=== PATIENT | male | born 1960 | race Caucasian/White ===

== ENCOUNTER 2023-07-23 06:16 | Day surgery (SDC) | payer BC, SELFPAY ==
[2023-07-23] VITALS (9 sets, daily range): BP systolic 123–150; BP diastolic 71–103; BMI 22.7
[2023-07-23] MEDS: NSS 209 ML IV (07:08)
[2023-07-23 08:00] LABS: ACT-LR - POC 263 Seconds (116-155)
--- NOTE | 2023-07-23 08:35 | ITS.CL.ANGIO ---
[employer] - Angioplasty
Angioplasty
Procedure Report:
CARDIAC CATHETERIZATION REPORT
Date of Procedure: 07/23/2023
Referring: Richard Garcia M.D.
INDICATION: Persistent angina, abnormal stress test, known coronary artery disease.
PROCEDURE:
1. Left heart catheterization.
2. Coronary angiography.
3. Successful PCI to the proximal circumflex.
ACCESS:
6 [place] right artery.
CATHETERS:
1. 5 [place] JR4.
2. 5 [place] JL 3.5.
3. 6 [place] EBU 3.5 guide.
HEMODYNAMIC DATA
Weight (kg): 70.8
AO (s/d/x, mmHg): 133/86/110
LV (s/x mmHg): 136/11 (A wave to 20)
LEFT VENTRICULOGRAPHY: Not performed.
CORONARY ANGIOGRAPHY
Dominance: Right.
Left Main: Normal size, bifurcating vessel. There is no coronary artery disease.
LAD: Normal size vessel giving rise to 2 diagonals. There are minor luminal irregularities in the proximal vessel. 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
Ramus: Congenitally absent.
Circumflex: Normal size, nondominant vessel giving rise to 1 large obtuse marginal. A patent stent is present extending from the proximal circumflex into the obtuse marginal with no evidence of in-stent restenosis. There is an 80% lesion in the
proximal circumflex, immediately proximal to the proximal margin of the stent.
RCA: Large size, dominant vessel. There is no coronary artery disease.
INTERVENTION(S)
1. Successful PCI of the 80% proximal circumflex lesion (Xience Skypoint 3.0 x 12 JOE, postdilated with a 3.0 NC balloon throughout and a 3.5 x 6 NC balloon in the proximal margin) with reduction in stenosis to 0%, maintaining ROSA-3 flow.
Narrative:
The decision was made to proceed with percutaneous coronary intervention. The diagnostic catheter was removed over a wire and a 6Fr EBU 3.5 guiding catheter was advanced to the aortic root and seated in the left main coronary artery. Additional
heparin was given and a Power Turn Flex wire was advanced into the distal obtuse marginal. The 80% proximal circumflex lesion was predilated with a 2.0 x 12 semi-compliant balloon to 12 doris. After satisfactory angioplasty result, we elected to load
with antiplatelet agent. Given the patient's prior intolerances, we elected to load with prasugrel 60 mg. Unfortunately, this was not readily available from the [facility] and had to be sent up from pharmacy. In the interim, the patient was given an
double bolus of eptifibatide. The semi-compliant balloon was removed and a Xience Skypoint 3.0 x 12 drug-eluting stent was advanced. Meticulous care was taken while positioning the stent with the distal edge overlapping the proximal margin of the
previous stent and the proximal edge not intruding into the left main coronary artery. We were particularly careful to avoid the circumflex/OM bifurcation. The stent was deployed at 12 atmospheres. The stent balloon was removed. A 3.0 x 8
noncompliant balloon was advanced into the stent and the stent was postdilated to 16 atmospheres. The noncompliant balloon was removed and a 3.5 x 6 noncompliant balloon was advanced. The proximal stent margin was postdilated to 15 doris. The
noncompliant balloon was removed. Angiography was performed in orthogonal views, confirming good stent expansion and an excellent angiographic result. The coronary wire was withdrawn and the guide was disengaged from the artery. The catheter was
removed over a standard J-wire. By this time, the prasugrel had arrived from pharmacy. The patient was asked to 60 mg. He was transferred to the holding area for monitoring.
Closure Device: Vascular band.
Radiation (mGy): 354.02
DAP (cm2.Gy): 21.1960
Fluoroscopy time (minutes): 4.4
Sedation time (minutes): 45
CONCLUSIONS
1. Right dominant circulation with luminal irregularities in the proximal LAD, and mid LAD myocardial bridge, a patent stent in the left circumflex extending into the obtuse marginal and an 80% proximal circumflex lesion, status post successful PCI
(Xience Skypoint 3.0 x 12 JOE, postdilated with a 3.0 NC balloon throughout and a 3.5 x 6 NC balloon in the proximal margin) with reduction in stenosis to 0%, maintaining ROSA-3 flow.
2. Normal filling pressures (LVEDP = 11 mmHg at 70.8 kg) with evidence of diastolic dysfunction (A wave to 20 mmHg).
3. Rash associated with clopidogrel. Low-level dyspnea associated with ticagrelor.
RECOMMENDATIONS:
1. Expectant management after cardiac catheterization via right radial approach.
2. Limited weight bearing on the right wrist for one week.
3. Dual antiplatelet therapy with aspirin and prasugrel. We will monitor for any reaction to the prasugrel given as it is in the same class of drug as clopidogrel.
4. If the patient is unable to tolerate any P2Y12 inhibitor, we will transition to ticagrelor and the patient will simply have to bear with the sensation of dyspnea.
5. Continue aggressive secondary preventive measures.
Copy to: iRchard Garcia M.D., Carson Schreiber D.O.
Matt Alonso DO, FACC, FACP
[2023-07-23] MEDS: EFFIENT 60 MG PO (09:07)
[2023-07-23] MEDS: NSS 1000 IV (09:08)
--- NOTE | 2023-07-23 10:00 | PTCARENOTE ---
Pt seen by Cardiac Rehab nurse at bedside to discuss rehab ortions. Appointment has been scheduled with patient for rehab as an outpatient.
[2023-07-23 11:47] LABS: ACT-LR - POC > 397 Seconds (116-155)
--- NOTE | 2023-07-23 14:36 | W.PN.UPDATE ---
Update Note
Progress Note Update
Pt seen post LCx PCI. Right radial cath site without ht/bleeding, non tender. OOB to chair. Post EKG NSR 70s, no acute changes. Prior history of dyspnea r/t brilinta and rash r/t plavix, and therefor will be on effient 10mg/daily. Pt understands
importance of uninterrupted DAPT w/asa, effient. Continue other meds as before. Cardiac rehab consulted. Followup at [facility] as scheduled. Home today if cath site/tele remain stable.
== END 2023-07-23 14:58 | disposition home or self-care (01) ==
LOC: CATH 06:16
PROVIDERS: ATTENDING PHYSICIAN Internal Medicine Cardiovascular Disease; FAMILY PHYSICIAN Family Medicine; OTHER PHYSICIAN Internal Medicine Cardiovascular Disease
DX: I25.119 Atherosclerotic heart disease of native coronary artery with unspecified angina pectoris (principal); Q24.5 Malformation of coronary vessels; Z95.5 Presence of coronary angioplasty implant and graft; Z79.02 Long term (current) use of antithrombotics/antiplatelets; Z79.82 Long term (current) use of aspirin
CPT/HCPCS: 85347; 93005; 93458; C1725; C1874; C1894; C9600; J1327; Q9967

== ENCOUNTER 2023-08-12 13:36 | Outpatient (RCR) | payer BC, SELFPAY | END 2023-08-12 23:59 | disposition home or self-care (01) | LOC: CRHB 13:36 | PROVIDERS: ATTENDING PHYSICIAN Internal Medicine Cardiovascular Disease | DX: I25.10 Atherosclerotic heart disease of native coronary artery without angina pectoris (principal); Z95.5 Presence of coronary angioplasty implant and graft; I25.2 Old myocardial infarction | CPT/HCPCS: 93798 ==

== ENCOUNTER → 2023-08-27 11:20 | Outpatient (REF) | payer BC, SELFPAY | LOC: DHCBC HW 11:20 | PROVIDERS: ATTENDING PHYSICIAN Specialist; FAMILY PHYSICIAN Family Medicine; REFERRING PHYSICIAN Nurse Practitioner | DX: R07.89 Other chest pain (principal); N20.0 Calculus of kidney | CPT/HCPCS: 74018; 93306 ==

== ENCOUNTER 2023-09-25 12:12 | Emergency (ER) | payer BC, SELFPAY ==
[2023-09-25 12:15] VITALS: BP 146/89
[2023-09-25 12:31] LABS: % Basophils 0.8 % (0-2); % Eosinophils 0.6 % (0-6); % Immature Granulocytes 0.2 % (0-0.5); % Monocytes 7.1 % (1.7-9.3); % Neutrophils 75.3 % (42.2-75.2); Absolute Basophils 0.1 10^3/uL (0-0.2); Absolute Monocytes 0.4 10^3/uL (0.1-0.6); Absolute Neutrophils 4.7 10^3/uL (1.4-6.5); Hematocrit 40.6 % (39.0-52.0); Hemoglobin 14.3 g/dL (13.0-18.0); Mean Corp Hgb Conc. 35.2 g/dL (33.0-37.0); Mean Corpuscular Hgb 31.8 pg (27.0-31.0); Mean Corpuscular Volume 90.4 fL (80.0-94.0); Mean Platelet Volume 11.1 fL (7.4-10.4); Nucleated Red Blood Cells % 0 % (-); Platelet Count 220 10^3/uL (130-400); Red Blood Cell Count 4.49 10^6/uL (4.70-6.10); Red Cell Dist. Width 11.7 % (11.5-14.5); White Blood Cell Count 6.2 10^3/uL (4.8-10.8)
[2023-09-25 12:45] LABS: ALT (SGPT) 52 U/L (0-50); AST (SGOT) 41 U/L (17-59); Albumin 4.8 g/dl (3.5-5.0); Alkaline Phosphatase 66 U/L (38-126); Blood Urea Nitrogen 9 mg/dl (9-20); Calcium 9.6 mg/dl (8.4-10.2); Carbon Dioxide 24 mmol/L (22-30); Chloride 106 mmol/L (98-107); Glucose 99 mg/dl (70-99); Lipase 97 U/L (23-300); Potassium 4.1 mmol/L (3.5-5.1); Sodium 137 mmol/L (135-145); Total Bilirubin 0.8 mg/dl (0.2-1.3); Total Protein 7.2 g/dl (6.3-8.2); eGFR > 60.00
[2023-09-25 13:25] VITALS: BP 144/70
[2023-09-25 13:50] LABS: Troponin I < 0.012 ng/ml
[2023-09-25 14:15] VITALS: BP 110/70
--- NOTE | 2023-09-25 14:43 | ED.GENMED ---
History of Present Illness
General
Chief Complaint: Abdominal Pain
Source: patient
Exam Limitations: none
Time Seen by Provider: 09/25/23 13:52
Nursing documentation reviewed up to this point in time: agreed with
Travel History
Have you had any contact with someone who has COVID-19?: No
Do you have any symptoms of coronavirus? Fever > 100 degrees, chills, cough, shortness of breath, sore throat, loss of taste or smell, muscle aches, or headache?: No
History of Present Illness
History of Present Illness:
Patient status post stent placement in June 2023, presents to ED secondary to intermittent upper abdominal pain radiating up to both shoulders, along with nausea sensation, as well as intermittent left-sided chest pain over the past 5 days.
Denies shortness of breath. Denies fever or chills. Denies diarrhea. Abdominal pain described as crampy, across his upper abdomen, with out any alleviating factors, but worse with meals. Denies difficulty with urination. Denies previous history
of similar symptoms. Denies recent change in medications or diet. Denies sick contact. Denies recent travel.
Past History
Past History
ED Past Medical History: GERD, HTN, Hypercholesterolemia, [place] and Other (Pericarditis)
ED Past Surgical History: None
Social History
Tobacco: Non-smoker
Alcohol: Occasional
Drug: None
Personal: Single
Living: other (Significant other)
Employment: Employed
Family History
Family History: Negative Early CAD or CAD
Review of Systems
Review of Systems
Allergies reviewed?: Yes
All Other Systems: ROS reviewed and negative except as documented in HPI and ROS
Constitutional: Reports no symptoms; Denies fever
EENT: Reports no symptoms
Respiratory: Reports no symptoms
Cardiac: Reports chest pain and palpitations
ABD/GI: Reports abdominal pain and nausea; Denies vomiting or diarrhea
: Reports no symptoms
Musculoskeletal: Reports no symptoms
Skin: Reports no symptoms
Neurological: Reports no symptoms
Phy Exam
Physical Exam
Physical Exam:
Physical Exam
General: no apparent distress, not acutely ill. afebrile
Head: nc/at. eomi
Neck: supple. no meningeal signs.
Heart: s1/s2 regular rate and rhythm, no murmur. equal radial pulses.
Lungs: no acute respiratory distress. clear bilaterally
Abdomen: normal bowel sounds. not tender.
Neuro: alert and oriented. no focal neurological deficits
Skin: no rash
Psychiatric: well kept. interactive and cooperative
Extremities: no edema. no calf tenderness.
Scores
Heart Score for Chest Pain Patients
STEMI patient?: No
History: Slightly or Non-Suspicious
ECG: Normal
Age: >45 - <65 years
Risk Factors: >/= 3 Risk Factors or History of CAD
Troponin: </= Normal Limit
Heart Score for Chest Pain Patients: 3
Heart Score Risk: 2.5% MACE over next 6 weeks
Course
Orders/Labs/Results
Orders:
Orders
09/25/23 12:17
Electrocardiogram (*1) Urgent
Reason for Study: Chest Pain
EKG- Treatment ONCE
09/25/23 12:24
Complete Blood Count/With Diff Urgent
Comprehensive Metabolic Panel Urgent
Lipase Urgent
09/25/23 13:19
Troponin I Urgent
09/25/23 14:32
US Abdomen Complete/Upper Urgent
Comment:
Reason For Exam: upper abdominal pain
Abnormal Lab Results
09/25/23
12:24
RBC 4.49 L 10^6/uL
(4.70-6.10)
MCH 31.8 H pg
(27.0-31.0)
MPV 11.1 H fL
(7.4-10.4)
Absolute Lymphs (auto) 1.0 L 10^3/uL
(1.2-3.4)
Neutrophils % 75.3 H %
(42.2-75.2)
Lymphocytes % 16.0 L %
(20.5-51.1)
ALT 52 H U/L
(0-50)
09/25/23 12:24
09/25/23 12:24
Vital Signs
Initial and Last Documented VS:
Initial Vital Signs
Temp Pulse Resp BP Pulse Ox
98.3 F 81 18 146/89 96
09/25/23 12:15 09/25/23 12:15 09/25/23 12:15 09/25/23 12:15 09/25/23 12:15
Last Documented Vital Signs
Temp Pulse Resp BP Pulse Ox
98.3 F 74 16 117/81 97
09/25/23 12:15 09/25/23 16:59 09/25/23 16:59 09/25/23 16:59 09/25/23 16:59
MDM/Problems Addressed
MDM/Problems Addressed:
Patient with an unremarkable workup in ED, including blood work, EKG, and abdominal ultrasound. Patient with a likely 2 separate processes, i.e. gastritis versus biliary colic versus ulcer, as well as potential cardiac symptoms. Patient remains
hemodynamically stable otherwise, without any acute distress. Advised diet modification short-term, along with GI or cardiology follow-up as an outpatient. Patient states that he already has an appointment with his paper inspector in 2 weeks.
Advised to return to ED with worsening symptoms.
*EKG
Interpreted by ED Provider?: Yes
EKG Intrepretation Date: 09/25/23
Heart Rate: 74
Rate: normal
Rhythm: sinus
[place]: normal axis
*Critical Care Note
Total Time (30-74mins, 75-104mins- exclusive of procedures): Not Applicable
ED Attending Note
-
Portions of this chart may have been created with voice recognition software.� Occasional wrong word or��sound alike� substitutions may have occurred due to the inherent limitations of voice recognition software.
Discharge Plan
Departure
Patient Disposition: Home (Routine Discharge)
Date of Disposition: 09/25/23
Time of Disposition: 16:38
Patient with high blood pressure during this ER visit?: Yes
Discharge Problem:
Abdominal pain, Chest pain
Instructions: Chest Pain (DC), Gastritis (DC), Ulcer and Gastritis Diet, Abdominal Pain
Prescriptions:
No Action
aspirin 81 mg Tablet,Chewable
81 mg PO DAILY Qty: 1 0RF
rosuvastatin [Crestor] 20 mg tablet
20 mg PO QPM Qty: 90 5RF
ezetimibe [Zetia] 10 mg Tablet
10 mg PO DAILY
omega-3 fatty acids Capsule
1,000 mg PO DAILY
prasugrel [Effient] 10 mg tablet
10 mg PO DAILY Qty: 90 3RF
nitroglycerin [nitroglycerin] 0.4 mg tablet, sublingual
0.4 mg sublingual [id number] PRN (Reason: chest pain) Qty: 25 2RF
Referrals:
Carson Schreiber, DO [Family Provider] -
Activity Restrictions/Additional Instructions:
As discussed, please follow-up with your primary care physician as well as paper inspector for further evaluation and treatment.
Interventions
Interventions:
*Risk Screen - Suicide Last Done: 09/25/23 12:15
*General Assessment Last Done: 09/25/23 12:15
*Neglect/Abuse Screening Last Done: 09/25/23 12:15
ED- Fall Risk Assessment Last Done: 09/25/23 13:25
*Nursing Disposition Last Done: 09/25/23 16:59
NL-Dqyyhl-Llelgtadew Assessment Last Done: 09/25/23 13:25
Discharge Date and Time
Discharge Date/Time: 09/25/23 16:55
Print Language: [place] R[place]
--- NOTE | 2023-09-25 16:56 | EDRN ---
Reviewed discharge instructions with patient. Verbalized understanding. Ambulated with steady gait to the lobby.
[2023-09-25 16:59] VITALS: BP 117/81
== END 2023-09-25 16:55 | disposition home or self-care (01) ==
LOC: EMR 12:12
PROVIDERS: Emergency Medicine; Student in an Organized Health Care Education/Training Program; EMERGENCY PHYSICIAN Emergency Medicine; FAMILY PHYSICIAN Family Medicine
DX: R07.89 Other chest pain (principal); R10.9 Unspecified abdominal pain; R00.2 Palpitations; R11.0 Nausea; I10 Essential (primary) hypertension
CPT/HCPCS: 99285; 76700; 80053; 83690; 84484; 85025; 93005

== ENCOUNTER → 2023-09-30 07:43 | Outpatient (REF) | payer BC, SELFPAY | LOC: RAD 07:43 | PROVIDERS: ATTENDING PHYSICIAN Family Medicine | DX: I25.10 Atherosclerotic heart disease of native coronary artery without angina pectoris (principal); E78.00 Pure hypercholesterolemia, unspecified | CPT/HCPCS: 93880 ==

== ENCOUNTER → 2023-10-08 12:50 | Outpatient (REF) | payer BC, SELFPAY | LOC: HWRAD 12:50 | PROVIDERS: ATTENDING PHYSICIAN Specialist; FAMILY PHYSICIAN Family Medicine | DX: N20.0 Calculus of kidney (principal) | CPT/HCPCS: 76775 ==

== ENCOUNTER 2024-01-05 09:17 | Emergency (ER) | payer BC, SELFPAY ==
[2024-01-05 09:22] VITALS: BP 132/90
[2024-01-05 09:52] VITALS: BMI 22.2
[2024-01-05 09:53] VITALS: BP 131/88
--- NOTE | 2024-01-05 09:59 | ED.GENMED ---
History of Present Illness
General
Chief Complaint: Chest Pain
Source: patient
Exam Limitations: none
Time Seen by Provider: 01/05/24 09:44
History of Present Illness
History of Present Illness:
See MDM
Past History
Past History
ED Past Medical History: GERD, HTN, Hypercholesterolemia, [place] and Other (Pericarditis)
ED Past Surgical History: None
Social History
Tobacco: Non-smoker
Alcohol: Occasional
Drug: None
Personal: Single
Living: other (Significant other)
Employment: Employed
Family History
Family History: Negative Early CAD or CAD
Phy Exam
Physical Exam
Physical Exam:
See MDM
Scores
Heart Score for Chest Pain Patients
STEMI patient?: No
History: Slightly or Non-Suspicious
ECG: Normal
Age: >45 - <65 years
Risk Factors: >/= 3 Risk Factors or History of CAD
Troponin: </= Normal Limit
Heart Score for Chest Pain Patients: 3
Heart Score Risk: 2.5% MACE over next 6 weeks
Course
Orders/Labs/Results
Orders:
Orders
01/05/24 09:24
Electrocardiogram (*1) Urgent
Reason for Study: Chest Pain
EKG- Treatment ONCE
01/05/24 09:58
CR Chest - 2 Views Urgent
Comment:
Reason For Exam: SOB, cough, chest pain
01/05/24 10:02
Complete Blood Count/With Diff Urgent
Comprehensive Metabolic Panel Urgent
Troponin I Urgent
01/05/24 10:44
Ketorolac [Toradol] 30 mg IV NOW STA
Abnormal Lab Results
01/05/24
10:02
WBC 4.7 L 10^3/uL
(4.8-10.8)
RBC 4.51 L 10^6/uL
(4.70-6.10)
MCH 31.5 H pg
(27.0-31.0)
MPV 11.6 H fL
(7.4-10.4)
Absolute Lymphs (auto) 0.9 L 10^3/uL
(1.2-3.4)
Lymphocytes % 19.9 L %
(20.5-51.1)
01/05/24 10:02
01/05/24 10:02
Vital Signs
Initial and Last Documented VS:
Initial Vital Signs
Temp Pulse Resp BP Pulse Ox
98.6 F 87 16 132/90 98
01/05/24 09:22 01/05/24 09:22 01/05/24 09:22 01/05/24 09:22 01/05/24 09:22
Last Documented Vital Signs
Temp Pulse Resp BP Pulse Ox
98.1 F 67 14 112/68 99
01/05/24 09:53 01/05/24 12:00 01/05/24 12:00 01/05/24 12:13 01/05/24 12:00
MDM/Problems Addressed
Differential Diagnosis Includes:
HPI and MDM Narrative:
63-year-old male presenting for evaluation of intermittent chest discomfort. This has been ongoing for the past several days. Given his prior history of coronary artery disease with stents, he was instructed to go to the hospital for evaluation by
his rehabilitation assistant. Patient does acknowledge that this feels different than the prior episodes where he required a stent. He states it actually feels like prior history of pericarditis soon after one of his stents was placed. I question whether or
not he had recent viral illness. Patient states he had viral URI a few weeks ago. Symptoms are worse when he lays back and somewhat improved when he sits forward. He has been exercising without any increase in symptoms.
Given duration of symptoms, will obtain troponin and chest x-ray. EKG done prior to my evaluation and shows no changes from prior
Physical exam
General: Well appearing and non-toxic
HEENT: protecting airway
Neck: appears supple
CV: No evidence of cyanosis. Regular rate and rhythm
Resp: No accessory muscle use. Lungs clear
Abd: Non-distended
Extremities: No deformities. No leg edema or tenderness
Neuro: alert
Psych: Normal affect
Skin: Intact
Problems Addressed including Acute and Chronic Conditions affecting care:
1. Chest pain
Acuity: acute
Prognosis: stable
Details: Given his history, likely in setting of pericarditis. Will obtain troponin and chest x-ray. If workup negative, will start colchicine
Updates
Troponin negative. Given his history, case discussed with cardiology who agrees with trial of colchicine and they will reach out to set up a stress test as an outpatient
Differential Diagnosis (but not limited to): Pericarditis, pericardial effusion, pneumonia, ACS
Testing considered: D-dimer but no tachycardic nor hypoxic
Drug therapy (if applicable): OTC meds, please see d/c instruction regarding Rx drugs
Amount and/or Complexity of Data Reviewed
Clinical info obtained from: Patient
External data reviewed: N/A
Labs I independently reviewed (but not limited to): Troponin normal
Radiology: X-ray independently reviewed: Chest x-ray clear
Pulse Ox: not hypoxic
EKG independently reviewed: Sinus rhythm, left axis, no STEMI
Sewer Pipe Offbearer: Sinus rhythm
Critical Care: N/A
Risk of Complication:
Social Determinants of health: Good social support
Discussed with other providers: N/A
Escalation of Care includes Admit/Obs: After being observed in the Emergency Department, pt stable for discharge.
Occasional wrong word or 'sound a like' substitutions may have occurred due to the inherent limitations of voice recognition software. Read the chart carefully and recognize, using context, where substitutions have occurred.
*Critical Care Note
Total Time (30-74mins, 75-104mins- exclusive of procedures): Not Applicable
ED Attending Note
-
Portions of this chart may have been created with voice recognition software.� Occasional wrong word or��sound alike� substitutions may have occurred due to the inherent limitations of voice recognition software.
Discharge Plan
Departure
Patient Disposition: Home (Routine Discharge)
Date of Disposition: 01/05/24
Time of Disposition: 12:17
Patient with high blood pressure during this ER visit?: No
Discharge Problem:
Chest pain
Prescriptions:
New
colchicine 0.6 mg capsule
0.6 mg PO BID Qty: 14 0RF
No Action
aspirin 81 mg Tablet,Chewable
81 mg PO DAILY Qty: 1 0RF
rosuvastatin [Crestor] 20 mg tablet
20 mg PO QPM Qty: 90 5RF
ezetimibe [Zetia] 10 mg Tablet
10 mg PO DAILY
omega-3 fatty acids Capsule
1,000 mg PO DAILY
prasugrel [Effient] 10 mg tablet
10 mg PO DAILY Qty: 90 3RF
nitroglycerin [nitroglycerin] 0.4 mg tablet, sublingual
0.4 mg sublingual [id number] PRN (Reason: chest pain) Qty: 25 2RF
Referrals:
Carson Schreiber, DO [Family Provider] -
Activity Restrictions/Additional Instructions:
As we discussed, there is no clear reason for your chest discomfort. Dr. Senior is aware you were here today. He indicated that the office will reach out to you to set up an outpatient stress test. Given your history, we had mentioned that it is
worth giving a trial of colchicine to treat likely pericarditis.
Please return for worsening symptoms.
Interventions
Interventions:
*Risk Screen - Suicide Last Done: 01/05/24 09:52
*General Assessment Last Done: 01/05/24 09:52
*Neglect/Abuse Screening Last Done: 01/05/24 09:52
*ED COVID-19 Vaccine History Last Done: 01/05/24 09:52
ED- Cardiac Assessment Last Done: 01/05/24 09:52
Discharge Date and Time
Print Language: PERSIAN
[2024-01-05 10:00] VITALS: BP 132/91
[2024-01-05 10:30] LABS: ALT (SGPT) 39 U/L (0-50); AST (SGOT) 31 U/L (17-59); Albumin 4.7 g/dl (3.5-5.0); Alkaline Phosphatase 64 U/L (38-126); Blood Urea Nitrogen 10 mg/dl (9-20); Calcium 9.5 mg/dl (8.4-10.2); Carbon Dioxide 29 mmol/L (22-30); Chloride 105 mmol/L (98-107); Estimated Creatinine Clearance 94 ml/min; Glucose 92 mg/dl (70-99); Potassium 4.3 mmol/L (3.5-5.1); Sodium 138 mmol/L (135-145); Total Protein 6.9 g/dl (6.3-8.2); eGFR > 60.00
[2024-01-05 10:37] LABS: Troponin I < 0.012 ng/ml
[2024-01-05] MEDS: TORADOL 30 MG IV (10:48)
[2024-01-05 11:22] LABS: % Basophils 0.9 % (0-2); % Eosinophils 1.9 % (0-6); % Immature Granulocytes 0.2 % (0-0.5); % Lymphocytes 19.9 % (20.5-51.1); % Monocytes 8.1 % (1.7-9.3); Absolute Eosinophils 0.1 10^3/uL (0-0.7); Absolute Lymphocytes 0.9 10^3/uL (1.2-3.4); Absolute Monocytes 0.4 10^3/uL (0.1-0.6); Absolute Neutrophils 3.2 10^3/uL (1.4-6.5); Hematocrit 40.1 % (39.0-52.0); Hemoglobin 14.2 g/dL (13.0-18.0); Mean Corp Hgb Conc. 35.4 g/dL (33.0-37.0); Mean Corpuscular Hgb 31.5 pg (27.0-31.0); Mean Corpuscular Volume 88.9 fL (80.0-94.0); Mean Platelet Volume 11.6 fL (7.4-10.4); Nucleated Red Blood Cells % 0 % (-); Platelet Count 218 10^3/uL (130-400); Red Blood Cell Count 4.51 10^6/uL (4.70-6.10); Red Cell Dist. Width 11.8 % (11.5-14.5); White Blood Cell Count 4.7 10^3/uL (4.8-10.8)
[2024-01-05 12:13] VITALS: BP 112/68
== END 2024-01-05 12:40 | disposition home or self-care (01) ==
LOC: EMR 09:17
PROVIDERS: EMERGENCY PHYSICIAN Student in an Organized Health Care Education/Training Program; FAMILY PHYSICIAN Family Medicine
DX: R07.89 Other chest pain (principal); K21.9 Gastro-esophageal reflux disease without esophagitis; I10 Essential (primary) hypertension; E78.00 Pure hypercholesterolemia, unspecified; I25.2 Old myocardial infarction; I31.9 Disease of pericardium, unspecified
CPT/HCPCS: 99283; 96374; 71046; 80053; 84484; 85025; 93005

== ENCOUNTER → 2024-01-20 11:37 | Outpatient (REF) | payer BC, SELFPAY | LOC: DHCBC/DCA 11:37 | PROVIDERS: ATTENDING PHYSICIAN Internal Medicine; FAMILY PHYSICIAN Family Medicine | DX: R00.2 Palpitations (principal); R07.9 Chest pain, unspecified | CPT/HCPCS: 78452; 93017; A9500 ==

== ENCOUNTER → 2024-04-15 16:58 | Outpatient (REF) | payer BC, SELFPAY | LOC: DHSLP 16:58 | PROVIDERS: ATTENDING PHYSICIAN Internal Medicine Critical Care Medicine; FAMILY PHYSICIAN Family Medicine | DX: G47.8 Other sleep disorders (principal); R06.83 Snoring | CPT/HCPCS: 95800 ==

== ENCOUNTER 2024-04-23 11:26 | Emergency (ER) | payer BC, SELFPAY ==
[2024-04-23] VITALS (7 sets, daily range): BP systolic 113–128; BP diastolic 68–84
--- NOTE | 2024-04-23 11:55 | ED.GENMED ---
History of Present Illness
General
Chief Complaint: Chest Pain
Source: patient
Exam Limitations: none
Time Seen by Provider: 04/23/24 11:55
Nursing documentation reviewed up to this point in time: agreed with
History of Present Illness
History of Present Illness:
63-year-old male with past medical history of coronary artery disease, hyperlipidemia, [address] presenting emergency department today with concerns of intermittent chest pain as well as intermittent shortness of breath. Patient has had
this pain for the past 3 days. Patient does not recall an inciting event to the pain, and feels like it is not related to exertion. Patient feels as though however the shortness of breath is related to exertion. He denies pleuritic pain. He
notes a dry cough but denies any other respiratory symptoms. Patient does lift weights but denies inciting injury. He denies any fevers or chills. Patient states that feels similar to the time when he had an abnormal stress test and had to get a
second stent placed. Patient also notes occasional upper back discomfort. Patient denies any lightheadedness, syncopal episodes, dizziness, headache, nausea, vomiting, abdominal pain. Patient denies any numbness or tingling.
Past History
Past History
ED Past Medical History: GERD, HTN, Hypercholesterolemia, MN and Other (Pericarditis)
ED Past Surgical History: None
Social History
Tobacco: Non-smoker
Alcohol: Occasional
Drug: None
Personal: Single
Living: other (Significant other)
Employment: Employed
Family History
Family History: Negative Early CAD or CAD
Review of Systems
Review of Systems
All Other Systems: ROS reviewed and negative except as documented in HPI and ROS
Phy Exam
Physical Exam
Physical Exam:
General: Patient is well appearing and in no acute distress; non-toxic
Skin: Warm and dry, no rashes or lesions
Head: Normocephalic, atraumatic
Eyes: Sclera non-icteric. EOMs intact. PERRLA.
Cardiac: Regular rate and rhythm, no murmurs. No tenderness palpation of the external chest wall.
Peripheral Vascular: No lower extremity swelling or edema
Pulm: Normal respiratory effort, no rhonchi, wheezes, crackles
Musculoskeletal: No chest pain with range of motion of upper extremities
Neuro: CN II-XII intact, no focal neurologic deficits.
Psychiatric: Appropriate mood and affect.
Scores
Heart Score for Chest Pain Patients
STEMI patient?: No
History: Slightly or Non-Suspicious
ECG: Nonspecific Repolarization
Age: >45 - <65 years
Risk Factors: >/= 3 Risk Factors or History of CAD
Troponin: </= Normal Limit
Heart Score for Chest Pain Patients: 4
Heart Score Risk: 20.3% MACE over next 6 weeks
Course
Orders/Labs/Results
Orders:
Orders
04/23/24 11:26
Electrocardiogram (*1) Urgent
Reason for Study: Chest Pain
EKG- Treatment ONCE
04/23/24 12:13
C-Reactive Protein Urgent
Comment: ADD ON
Complete Blood Count/With Diff Urgent
Comprehensive Metabolic Panel Urgent
Erythrocyte Sed Rate Urgent
Comment: ADD ON
Troponin I Urgent
04/23/24 12:31
CR Chest - 2 Views Urgent
Comment:
Reason For Exam: right sided chest pain, sob
04/23/24 13:23
CARDIOLOGY CONSULT Urgent
Consulting Provider: Venkatesh Lau)
Was physician already notified: Yes
04/23/24 14:09
Add On- LAB Urgent
Tests Added?: ESR, CRP
04/23/24 15:25
Troponin I Routine
Abnormal Lab Results
04/23/24
12:13
WBC 4.7 L 10^3/uL
(4.8-10.8)
RBC 4.52 L 10^6/uL
(4.70-6.10)
MPV 11.2 H fL
(7.4-10.4)
Absolute Lymphs (auto) 1.0 L 10^3/uL
(1.2-3.4)
04/23/24 12:13
04/23/24 12:13
Vital Signs
Initial and Last Documented VS:
Initial Vital Signs
Temp Pulse Resp BP Pulse Ox
98.3 F 72 16 128/79 99
04/23/24 11:31 04/23/24 11:31 04/23/24 11:31 04/23/24 11:31 04/23/24 11:31
Last Documented Vital Signs
Temp Pulse Resp BP Pulse Ox
98.3 F 76 16 113/68 96
04/23/24 11:32 04/23/24 16:00 04/23/24 16:00 04/23/24 16:00 04/23/24 16:00
MDM/Problems Addressed
Differential Diagnosis Includes:
Differentials include ACS, pericarditis, musculoskeletal sprain/strain, costochondritis
MDM/Problems Addressed:
63-year-old male presents emergency department today with concerns of intermittent chest pain and shortness of breath. He has had this for the past 3 days. On exam, he is well-appearing, he is in no acute distress. He has no palpable chest pain.
His EKG shows a new T wave inversion in V3 as well as new RSR prime. In addition, he had an undetectable troponin. He had a normal chest x-ray today. He has pericarditis in the past but his inflammatory markers today are not elevated.
Considering new EKG findings,, did discuss this with shroud line tier on-call from his cardiology practice. Dr. Mike came down to the emergency department to evaluate the patient and feels that he is safe to leave the emergency department.
Discussed follow-up with his shroud line tier. Patient stable for discharge.
Chronic conditions affecting care:
GERD, CAD, MN
*Pulse Oximetry
Patient hypoxic: no
*EKG
Interpreted by ED Provider?: Yes
EKG Intrepretation Date: 04/23/24
Interpretation: abnormal
Comparison EKG: changes noted (New T wave inversion in V3, new RSR prime pattern in V2)
Heart Rate: 74
Rate: normal
Rhythm: sinus
[place]: left axis deviation
Interval: normal interval
*Critical Care Note
Total Time (30-74mins, 75-104mins- exclusive of procedures): Not Applicable
Data Reviewed
Review of Other/Old Records Reveals: Records (Reviewed previous ER physician documentation from 01/05/2024, patient seen for similar symptoms, he had unremarkable workup and he had trial colchicine done which seemed to help his symptoms) and
Discharge Summary (Reviewed discharge summary from 03/05/2022 patient is admitted for STEMI)
Source: patient and records
Prescriptions/Medications Considered But Not Given:
N/A
Further Testing Considered But Not Given:
N/A
Patient Management
Discussion with other providers: Training Mgr (Reviewed webmethods consultant note for cardiology from Dr. Israel)
Escalation/DeEscalation of care consider admission/obs:
Admit not indicated, patient stable for discharge, case reviewed with my attending Dr. Kramer
ED Attending Note
-
Portions of this chart may have been created with voice recognition software.� Occasional wrong word or��sound alike� substitutions may have occurred due to the inherent limitations of voice recognition software.
Discharge Plan
Departure
Patient Disposition: Home (Routine Discharge)
Date of Disposition: 04/23/24
Time of Disposition: 16:04
Patient with high blood pressure during this ER visit?: Yes
Condition: Good
Discharge Problem:
Chest pain
Instructions: BLOOD PRESSURE, Chest Pain
Prescriptions:
No Action
aspirin 81 mg Tablet,Chewable
81 mg PO DAILY Qty: 1 0RF
rosuvastatin [Crestor] 20 mg tablet
20 mg PO QPM Qty: 90 5RF
ezetimibe [Zetia] 10 mg Tablet
10 mg PO DAILY
omega-3 fatty acids Capsule
1,000 mg PO DAILY
prasugrel [Effient] 10 mg tablet
10 mg PO DAILY Qty: 90 3RF
nitroglycerin [nitroglycerin] 0.4 mg tablet, sublingual
0.4 mg sublingual [id number] PRN (Reason: chest pain) Qty: 25 2RF
colchicine 0.6 mg capsule
0.6 mg PO BID Qty: 14 0RF
Referrals:
Carson Schreiber DO [Family Provider] -
Activity Restrictions/Additional Instructions:
Please return to emergency department if you experience acute worsening of her symptoms, syncopal episodes, dizziness, lightheadedness, difficulty speaking, confusion, difficulty ambulating, or any other signs or symptoms concerning to you.
Please follow-up with your shroud line tier.
Please follow-up with your PCP.
Interventions
Interventions:
*Risk Screen - Suicide Last Done: 04/23/24 11:32
*General Assessment Last Done: 04/23/24 11:32
*Neglect/Abuse Screening Last Done: 04/23/24 11:32
*Nursing Disposition Last Done: 04/23/24 16:18
ED- Cardiac Assessment Last Done: 04/23/24 12:13
Discharge Date and Time
Discharge Date/Time: 04/23/24 16:21
Print Language: CITIZEN OF [place]
[2024-04-23 12:20] LABS: % Basophils 0.9 % (0-2); % Eosinophils 1.5 % (0-6); % Immature Granulocytes 0.2 % (0-0.5); % Lymphocytes 21.2 % (20.5-51.1); % Monocytes 8.8 % (1.7-9.3); % Neutrophils 67.4 % (42.2-75.2); Absolute Eosinophils 0.1 10^3/uL (0-0.7); Absolute Monocytes 0.4 10^3/uL (0.1-0.6); Absolute Neutrophils 3.1 10^3/uL (1.4-6.5); Hematocrit 40.2 % (39.0-52.0); Hemoglobin 13.9 g/dL (13.0-18.0); Mean Corp Hgb Conc. 34.6 g/dL (33.0-37.0); Mean Corpuscular Hgb 30.8 pg (27.0-31.0); Mean Corpuscular Volume 88.9 fL (80.0-94.0); Mean Platelet Volume 11.2 fL (7.4-10.4); Nucleated Red Blood Cells % 0 % (-); Platelet Count 231 10^3/uL (130-400); Red Blood Cell Count 4.52 10^6/uL (4.70-6.10); Red Cell Dist. Width 11.7 % (11.5-14.5); White Blood Cell Count 4.7 10^3/uL (4.8-10.8)
[2024-04-23 12:33] LABS: ALT (SGPT) 36 U/L (0-50); AST (SGOT) 34 U/L (17-59); Albumin 4.7 g/dl (3.5-5.0); Alkaline Phosphatase 49 U/L (38-126); Blood Urea Nitrogen 10 mg/dl (9-20); Calcium 9.8 mg/dl (8.4-10.2); Carbon Dioxide 26 mmol/L (22-30); Chloride 104 mmol/L (98-107); Glucose 88 mg/dl (70-99); Potassium 4.6 mmol/L (3.5-5.1); Sodium 141 mmol/L (135-145); Total Bilirubin 0.9 mg/dl (0.2-1.3); eGFR > 60.00
[2024-04-23 12:49] LABS: Troponin I < 0.012 ng/ml
--- NOTE | 2024-04-23 14:10 | CON.CAR ---
Addendum entered and electronically signed by Venkatesh Lau MD (Ellie) 04/23/24 15:36:
I saw and examined the patient.
The TECHNICAL SERVICES MANAGER's note was reviewed and I agree with the note.
Comment:
63-year-old male with past history of CAD (NSTEMI with PCI to OM1 02/11, PCI proximal left circumflex 07/16) and presumed pericarditis after KS in 2021 who presents to the ER with chest pain. This has been ongoing for up to a year but has been
slightly worse over the last week. It does not sound ischemic in nature.
Physical exam: Well-appearing male in no acute distress, heart with regular rate and rhythm, no murmurs/rubs/gallops, no lower extremity edema, no JVD
Labs: Negative troponin, normal CRP
ECG: Normal sinus rhythm, left axis deviation, no evidence of ischemia or pericarditis
Chest pain: Differential diagnosis includes recurrent pericarditis, microvascular dysfunction, and noncardiac chest pain. I have very low suspicion that this is due to ischemia. We will check a repeat troponin and if this is normal he is safe to
leave the emergency room. We will also add on an ESR. If ESR is elevated, we can increase colchicine to 0.6 mg twice daily and treat for presumed pericarditis. If troponin and ESR/CRP are normal, he can be seen in the office for regular follow-up
and further workup.
Original Note:
Consultation
Consultation Request
Date/Time Consultation Requested: 04/23/24 1:15p
Date/Time Consultation Performed: 04/23/24 1:45p
Requesting Provider: Ashly Penaloza PA-C
Performing Provider: EMANI Thorne for Dr. Lau
Reason for Consultation: chest pain
Medical History
-
Chief Complaint: chest pain
History of Present Illness:
Mr. Dallas is a 63-year-old man with CAD, NSTEMI s/p JOE to OM1 01/2022, then JOE to prox Lcx 06/2023, hyperlipidemia (intolerant to high dose statins), and pericarditis post KS 2021, who�presents to the ER with c/o sharp chest pains and SOB that
wake him from sleeping at night. Symptoms are ongoing and intermittent for 8 months. Symptoms lasts for 20 mins then resolve on their own. Nothing makes them better or worse. He reports compliance with medications. He was started on colchicine
0.[address] Senior in January 2024 for these symptoms (management of CAD and pericarditis). He states having some GI issues, stopped it for 2 weeks and is now back on colchicine again. Initial troponin < 0.012, second pending.
Past Medical History
Past Medical History: Other (as above)
Past Surgical History: Other
Social History
Tobacco: Non-Smoker
Alcohol: None
Living: With Family
Family History
Family History: Reviewed & Not Pertinent
Allergies / Home Medications
Allergy/AdvReac Type Severity Reaction Status Date / Time
clopidogrel [From Plavix] Allergy Rash Verified 04/23/24 11:32
�Medication �Instructions �Recorded �Confirmed �Type
aspirin 81 mg chewable tablet 81 mg PO DAILY #1 tab 02/22/22 07/23/23 Rx
rosuvastatin 20 mg tablet (Crestor) 20 mg PO QPM #90 tabs 02/22/22 07/23/23 Rx
ezetimibe 10 mg tablet (Zetia) 10 mg PO DAILY 07/23/23 07/23/23 History
nitroglycerin 0.4 mg sublingual 0.4 mg sublingual [id number] PRN 07/23/23 Rx
tablet chest pain #25 tabs
omega-3 fatty acids 1,000 mg PO DAILY 07/23/23 07/23/23 History
prasugrel 10 mg tablet (Effient) 10 mg PO DAILY #90 tabs 07/23/23 Rx
colchicine 0.6 mg capsule 0.6 mg PO BID #14 caps 01/05/24 Rx
Review of Systems
-
History Source: Patient
All other systems: Negative unless noted
Physical Exam
Vital Signs
Temp Pulse Resp BP Pulse Ox
98.3 F 80 20 125/84 99
04/23/24 11:32 04/23/24 12:30 04/23/24 12:30 04/23/24 12:12 04/23/24 12:30
Lab Results
04/23/24 12:13
04/23/24 12:13
Troponin I < 0.012 ng/ml 04/23/24 12:13
Physical Exam
General: Well Developed, Well Nourished and No Apparent Distress
HEENT: Normocephalic
Respiratory: Clear and Non Labored Respirations
Cardiac: S1/S2 and Regular Rhythm
Breast: Deferred by me
GI: Soft, Non Tender, Non Distended and Normal Bowel Sounds
Rectal: Deferred by Provider
Musculoskeletal: No Clubbing and No Cyanosis
Skin: Warm and Dry
Neuro: AO x 3
Hematologic/Lymphatic: No Lymphadenopathy
Psych: Calm
Impression / Plan
-
Chest pain - ongoing, intermittent for 8 months.
- does not occur with exertion.
- not typical angina.
- initial troponin < 0.012, second troponin pending.
- EKG non ischemic.
- check ESR and CRP, if elevated then can increase Colchicine 0.6mg daily to BID.
- continue current medical therapy.
- Nuclear stress test 01/20/24 negative for ischemia.
CAD - prior JOE 06/2023 and 01/2022.
- continue DAPT, ASA and Effient (Plavix allergy, Brilinta caused SOB).
HLD - stable on Crestor and Zetia, continue.
- LDL 40 from 09/2023.
Data Reviewed
-
EKG: Tracing Personally Visualized and interpreted (NSR 74 bpm, IRBBB, no change )
Radiology: Report Reviewed by me (CXR: NAD)
Labs: Labs Reviewed by me
Old Records: Reviewed
[2024-04-23 14:38] LABS: Erythrocyte Sed Rate 9 mm/hour (0-20)
[2024-04-23 14:53] LABS: C-Reactive Protein < 5.00 mg/L (0.0-10.00)
[2024-04-23 16:01] LABS: Troponin I < 0.012 ng/ml
== END 2024-04-23 16:21 | disposition home or self-care (01) ==
LOC: EMR 11:26
PROVIDERS: Nurse Practitioner; Physician Assistant; CONSULT PHYSICIAN Student in an Organized Health Care Education/Training Program; EMERGENCY PHYSICIAN Emergency Medicine; FAMILY PHYSICIAN Family Medicine
DX: R07.9 Chest pain, unspecified (principal); I25.10 Atherosclerotic heart disease of native coronary artery without angina pectoris; E78.00 Pure hypercholesterolemia, unspecified; I10 Essential (primary) hypertension; I25.2 Old myocardial infarction; K21.9 Gastro-esophageal reflux disease without esophagitis; Z79.02 Long term (current) use of antithrombotics/antiplatelets; Z95.5 Presence of coronary angioplasty implant and graft; Z79.82 Long term (current) use of aspirin
CPT/HCPCS: 99285; 71046; 80053; 84484; 85025; 85652; 86140; 93005

== ENCOUNTER 2025-01-04 13:56 | Emergency (ER) | payer BC, SELFPAY ==
[2025-01-04 14:02] VITALS: BP 124/76
[2025-01-04 14:17] LABS: Hematocrit 41.3 % (39.0-52.0); Hemoglobin 14.5 g/dL (13.0-18.0); Mean Corp Hgb Conc. 35.1 g/dL (33.0-37.0); Mean Corpuscular Volume 92.0 fL (80.0-94.0); Nucleated Red Blood Cells % 0 % (-); Platelet Count 216 10^3/uL (130-400); Red Cell Dist. Width 11.9 % (11.5-14.5)
[2025-01-04 14:36] LABS: ALT (SGPT) 37 U/L (0-50); AST (SGOT) 29 U/L (17-59); Albumin 4.8 g/dl (3.5-5.0); Alkaline Phosphatase 45 U/L (38-126); Blood Urea Nitrogen 10 mg/dl (9-20); Calcium 9.8 mg/dl (8.4-10.2); Carbon Dioxide 28 mmol/L (22-30); Chloride 108 mmol/L (98-107); Glucose 118 mg/dl (70-99); Potassium 3.9 mmol/L (3.5-5.1); Sodium 143 mmol/L (135-145); Total Protein 7.2 g/dl (6.3-8.2); eGFR > 60.00
[2025-01-04 14:48] LABS: Troponin I < 0.012 ng/ml
--- NOTE | 2025-01-04 15:14 | ED.GENMED ---
History of Present Illness
General
Chief Complaint: Chest Pain
Time Seen by Provider: 01/04/25 15:11
History of Present Illness
History of Present Illness:
TIME OF INITIAL EVALUATION
- 3:15 PM
REVIEW OF OLD RECORDS
- The patient has history of CAD/DC. He also has a history of anxiety. The patient was seen here last April for chest pain in the Emergency Department and was also seen by cardiology at that time. At that time there was some concern for the
possibility of pericarditis as well and it was felt that his symptoms were not related to ischemia at that time.
Note:
CHIEF COMPLAINT(S)
Chest discomfort and shortness of breath.
HISTORY OF PRESENT ILLNESS
The patient is a 64-year-old male with a history of a heart attack three years ago, presenting with shortness of breath and chest discomfort. Symptoms began last evening and maybe even a couple of days ago. The patient reported waking up due to
shortness of breath and has associated symptoms of rapid heartbeat and anxiety. Initial tests for sleep apnea were negative.
Upon arrival in the emergency department around 2 PM, the patient experienced sharp chest pain, described as sharp and piercing rather than deep, which is consistent with previous heart attack symptoms. The chest discomfort started about an hour
before coming to the hospital. The patient has also been experiencing fatigue, trouble sleeping, and sweating.
Vital signs were stable with a normal heart rate. An electrocardiogram (EKG) reviewed today showed improvements compared to one done last year. Initial cardiac bloodwork returned normal. The patient describes the pain as sharp with no radiation, and
pain was not reproduced with palpation of the chest wall, ruling out musculoskeletal causes.
No signs of a rash suggestive of shingles were observed. Lungs were auscultated and found to be clear with no wheezes or crackles.
SOCIAL DETERMINANTS AFFECTING HEALTH
The patient reports feeling stress and anxiety which may be contributing to the symptoms.
EXTERNAL RECORDS REVIEWED
The patient had an EKG in April of the previous year due to concerns about chest pain, as per previous emergency records. Additionally, the patient�s cardiology group is [facility]. There is a mention of past cardiology
consults and EKG changes during previous visits.
CHRONIC MEDICAL CONDITIONS SIGNIFICANTLY AFFECTING CARE
History of myocardial infarction (heart attack) three years ago.
PHYSICAL EXAM
General: Alert, no acute distress.
Skin: Warm, dry. No sign of zoster
Head: Normocephalic, atraumatic.
Neck: Supple, trachea midline.
Eye, Ears, Nose, Mouth and Throat: Oral mucosa moist.
Cardiovascular: Normal peripheral perfusion, no edema.
Respiratory: Clear breath sounds, respirations are non-labored.
Gastrointestinal: Abdomen non-distended.
Back: Normal range of motion, normal alignment.
Musculoskeletal: No chest wall tenderness.
Neurological: Alert and oriented to person, place, time, and situation. No focal neurological deficit observed.
Psychiatric: Cooperative, appropriate mood & affect.
PLAN
- Repeat cardiac biomarkers three hours post initial draw.
- Consider chest X-ray and D-dimer test to rule out pulmonary embolism.
- Patient declined immediate pain medication.
- Further review of records and details from previous cardiology consultations to ensure comprehensive care.
- Depending on results, the patient may still be discharged today after additional tests.
DIFFERENTIAL DIAGNOSIS
The Differential Diagnosis includes, in no particular order and is not limited to:
1. Angina
2. Anxiety Attack
3. Pulmonary Embolism
4. Musculoskeletal Pain
5. Gastroesophageal Reflux Disease (GERD)
6. Pneumonia
7. Aortic Dissection
8. Myocarditis
9. Costochondritis
10. Pleuritis
RADIOLOGY
- Chest x-ray negative
EKG
- Sinus 83, left axis deviation, nonspecific ST abnormality; in 2023 the patient did have T wave inversion anteriorly which is no longer present
LABS
- CBC normal, chemistries unremarkable including normal troponin
UPDATE
-SUMMARY OF ENCOUNTER
The patient, a 64-year-old male with a history of myocardial infarction, presented to the emergency department with chest discomfort and shortness of breath. Initial evaluation included cardiac bloodwork, which was drawn twice, and imaging studies,
including a chest X-ray, all of which were normal. Blood tests ruled out the possibility of a pulmonary embolism or another cardiac event. Despite the patients symptoms echoing those of a previous heart attack, findings suggest anxiety or a benign
muscle spasm as potential causes. Given the patients stable condition and normal test results, hospitalization was deemed unnecessary.
DISPOSITION
Discharge
PLAN
The patient is advised to follow up with their chemical lab technician, Dr. Senior, for further evaluation and management. A notification will be sent to expedite this follow-up to occur sooner than initially planned.
INDEPENDENT REVIEW OF LABS AND INTERPRETATION OF TESTS
My independent review of cardiac biomarkers is normal as they were drawn twice with no abnormal results. My independent interpretation of the chest X-ray is normal, as indicated by no signs of abnormal findings.
MEDICAL DECISION MAKING
-Complexity of Data Reviewed: Chronic conditions affecting care [history of myocardial infarction] and DDx list: Angina, Anxiety Attack, Pulmonary Embolism, Musculoskeletal Pain, Gastroesophageal Reflux Disease (GERD), Pneumonia, Aortic Dissection,
Myocarditis, Costochondritis, Pleuritis.
-Data:
Category 1
Tests and documents: Labs for cardiac biomarkers and D-dimer reviewed, and a chest X-ray was independently interpreted.
Category 2
My independent interpretation of the chest X-ray shows no abnormalities.
Main Category 3
None discussed.
-Risk:
Consideration of Admission/Observation: Escalation of care including admission/observation was considered given the complexity and risk of the patients presenting complaint, exam findings, and/or their underlying comorbidities. However, ultimately I
feel the patient is safe for outpatient management with close follow-up. Reasoning: Work-up reassuring, does not reveal any acute life/organ-threatening processes, patients symptoms well controlled upon reevaluation, reexamination is reassuring,
vitals are stable, patient agreeable with discharge, reliable for follow-up.
Care significantly affected by Social Determinants of Health: The patient reports stress and anxiety affecting his health.
DIAGNOSIS
Chest Pain, Unspecified (ICD-10 R07.9)
Past History
Past History
ED Past Medical History: GERD, HTN, Hypercholesterolemia, DC and Other (Pericarditis)
ED Past Surgical History: None
Social History
Tobacco: Non-smoker
Alcohol: Occasional
Drug: None
Personal: Single
Living: other (Significant other)
Employment: Employed
Family History
Family History: Negative Early CAD or CAD
Phy Exam
Physical Exam
Physical Exam:
See HPI
Scores
Heart Score for Chest Pain Patients
STEMI patient?: Not applicable
Course
Orders/Labs/Results
Orders:
Orders
01/04/25 14:00
Electrocardiogram (*1) Stat
Comment: ALREADY DONE IN ED
01/04/25 14:03
Cardiac Monitoring- Treatment ONCE
IV Insert/Care/Rem.- Treatment PRN
Chest [CR Chest - 2 Views ] Urgent
Comment:
Reason For Exam: CP/SOB
O2 Therapy [RESP] Urgent
Titrate/Wean O2 to maintain O2 sat greater than (%): 90
Special Instructions: Maintain sats >/=90%
Pulse Ox/spot Check [RESP] Urgent
Quantity: 1
Special Instructions: ON ROOM AIR
01/04/25 14:08
Complete Blood Count/With Diff Urgent
Comprehensive Metabolic Panel Urgent
Erythrocyte Sed Rate Urgent
Comment: ADD ON
Troponin I Urgent
01/04/25 15:17
Add On- LAB Urgent
Tests Added?: esr
01/04/25 16:28
D-Dimer Urgent
Troponin I Urgent
Abnormal Lab Results
01/04/25
14:08
RBC 4.49 L 10^6/uL
(4.70-6.10)
MCH 32.3 H pg
(27.0-31.0)
MPV 11.6 H fL
(7.4-10.4)
Absolute Lymphs (auto) 1.1 L 10^3/uL
(1.2-3.4)
Lymphocytes % 18.1 L %
(20.5-51.1)
Chloride 108 H mmol/L
(98-107)
Glucose 118 H mg/dl
(70-99)
01/04/25 14:08
01/04/25 14:08
Vital Signs
Initial and Last Documented VS:
Initial Vital Signs
Temp Pulse Resp BP Pulse Ox
36.8 C 82 18 124/76 100
01/04/25 14:02 01/04/25 14:02 01/04/25 14:02 01/04/25 14:02 01/04/25 14:02
Last Documented Vital Signs
Temp Pulse Resp BP Pulse Ox
36.8 C 63 16 159/78 98
01/04/25 14:02 01/04/25 17:34 01/04/25 17:34 01/04/25 17:34 01/04/25 17:34
*Pulse Oximetry
SaO2: 100
Oxygen Mode of Delivery: Room air
Patient hypoxic: no
*Critical Care Note
Total Time (30-74mins, 75-104mins- exclusive of procedures): Not Applicable
ED Attending Note
-
Portions of this chart may have been created with voice recognition software.� Occasional wrong word or��sound alike� substitutions may have occurred due to the inherent limitations of voice recognition software.
Discharge Plan
Departure
Patient Disposition: Home (Routine Discharge)
Date of Disposition: 01/04/25
Time of Disposition: 17:19
Patient with high blood pressure during this ER visit?: Yes
Discharge Problem:
Chest pain
Instructions: Chest Pain CBC Follow Up
Prescriptions:
No Action
ezetimibe [Zetia] 10 mg Tablet
10 mg PO QPM
omega-3 fatty acids Capsule
1,000 mg PO DAILY
nitroglycerin [nitroglycerin] 0.4 mg tablet, sublingual
0.4 mg sublingual [id number] PRN (Reason: chest pain) Qty: 25 2RF
aspirin 81 mg Tablet,Delayed Release (Dr/Ec)
81 mg PO QPM
acetaminophen [Tylenol Extra Strength] 500 mg Tablet
500 mg PO DAILYPRN PRN (Reason: mild pain)
vitamin B complex Tablet
1 tab PO DAILYPRN PRN (Reason: supplement)
metoprolol succinate 25 mg Tablet Extended Release 24 Hr
12.5 mg PO DAILYPRN PRN (Reason: blood pressure)
Patient Comments:
01/03/2025, per pt., filled this prescription years ago and will take occassionally as needed.
rosuvastatin 10 mg Tablet
10 mg PO QPM
cholecalciferol (vitamin D3) 25 mcg (1,000 unit) Tablet
25 mcg PO DAILYPRN PRN (Reason: supplement)
Referrals:
Carson Schreiber DO [Family Provider, Family Practice]
Activity Restrictions/Additional Instructions:
Follow-up with Dr. Senior. 2 sets of cardiac blood work were normal today. Blood work also shows no sign of heart attack. The EKG today is improved compared to prior EKG. Return here if worse or other concerns.
Interventions
Interventions:
*Risk Screen - Suicide Last Done: 01/04/25 14:02
*General Assessment Last Done: 01/04/25 15:12
*Neglect/Abuse Screening Last Done: 01/04/25 14:02
*ED- Fall Risk Assessment Last Done: 01/04/25 15:12
*ED COVID-19 Vaccine History Last Done: 01/04/25 15:12
*Nursing Disposition Last Done: 01/04/25 17:39
ED- Cardiac Assessment Last Done: 01/04/25 15:13
Discharge Date and Time
Discharge Date/Time: 01/04/25 17:44
Print Language: [place]
[2025-01-04 15:17] VITALS: BP 126/104
[2025-01-04 15:25] VITALS: BMI 21.4
[2025-01-04 16:57] LABS: Troponin I < 0.012 ng/ml
[2025-01-04 17:13] LABS: D-Dimer < 0.27 ug/mlFEU (0.00-0.50)
[2025-01-04 17:34] VITALS: BP 159/78
== END 2025-01-04 17:44 | disposition home or self-care (01) ==
LOC: EMR 13:56
PROVIDERS: Emergency Medicine; EMERGENCY PHYSICIAN Emergency Medicine; FAMILY PHYSICIAN Family Medicine
DX: R07.9 Chest pain, unspecified (principal); E78.00 Pure hypercholesterolemia, unspecified; I10 Essential (primary) hypertension; I25.10 Atherosclerotic heart disease of native coronary artery without angina pectoris; I25.2 Old myocardial infarction
CPT/HCPCS: 99285; 71046; 80053; 84484; 85025; 85379; 85652; 93005

== ENCOUNTER → 2025-03-17 07:59 | Outpatient (REF) | payer BC, SELFPAY | LOC: HWRCS 07:59 | PROVIDERS: ATTENDING PHYSICIAN Internal Medicine; FAMILY PHYSICIAN Family Medicine | DX: I25.10 Atherosclerotic heart disease of native coronary artery without angina pectoris (principal); Z95.5 Presence of coronary angioplasty implant and graft; I25.2 Old myocardial infarction; R07.9 Chest pain, unspecified | CPT/HCPCS: 93306 ==

== ENCOUNTER → 2025-03-22 09:40 | Outpatient (REF) | payer BC, SELFPAY | LOC: RCS 09:40 | PROVIDERS: ATTENDING PHYSICIAN Internal Medicine; FAMILY PHYSICIAN Family Medicine | DX: I25.10 Atherosclerotic heart disease of native coronary artery without angina pectoris (principal); Z95.5 Presence of coronary angioplasty implant and graft; I25.2 Old myocardial infarction; R07.9 Chest pain, unspecified | CPT/HCPCS: 93017; 93350 ==